=== PATIENT | female | born 1945 | race Caucasian/White ===

== ENCOUNTER → 2017-01-03 | Outpatient (CLI) | payer MEDICARE, BC | END | disposition home or self-care (01) | LOC: RAD.S 16:00 | DX: R06.00 Dyspnea, unspecified (principal); R09.02 Hypoxemia ==

== ENCOUNTER → 2017-02-08 | Outpatient (CLI) | payer MEDICARE, BC | END | disposition home or self-care (01) | LOC: RAD.S 02-06 13:57 → PTH.S 06:52 | DX: M79.605 Pain in left leg (principal); M47.896 Other spondylosis, lumbar region; M50.30 Other cervical disc degeneration, unspecified cervical region; M48.03 Spinal stenosis, cervicothoracic region; Z98.890 Other specified postprocedural states; M51.36 Other intervertebral disc degeneration, lumbar region; M50.80 Other cervical disc disorders, unspecified cervical region ==